=== PATIENT | female | born 1985 | race Caucasian/White ===

== ENCOUNTER → 2021-05-15 | Outpatient (CLI) | payer OTHER ==
[2021-05-15 15:27] LABS: BASO % 0.4 % (0.0-1.0); EOS # 0.1 10^3/uL (0.0-0.5); EOS % 1.4 % (0.0-3.0); HEMATOCRIT 35.3 % (36.0-47.0); HEMOGLOBIN 11.5 g/dl (12.0-15.5); LYMPH # 1.6 10^3/uL (1.5-5.0); LYMPH % 19.5 % (24.0-44.0); MEAN CORPUSCULAR HGB CONC 32.6 g/dl (32.0-36.5); MEAN CORPUSCULAR VOLUME 89.1 fl (80.0-96.0); MONO # 0.8 10^3/uL (0.0-0.8); NEUTROPHILS # 5.8 10^3/uL (1.5-8.5); NEUTROPHILS % 68.2 % (36.0-66.0); PLATELET COUNT, AUTOMATED 235 10^3/uL (150-450); RED BLOOD COUNT 3.96 10^6/uL (4.00-5.40); WHITE BLOOD COUNT 8.4 10^3/uL (4.0-10.0)
[2021-05-15 16:39] LABS: HEPATITIS C VIRUS ABY INDEX < 0.0 INDEX (<0.8); HIV 1&2 SCREEN CENTAUR NEGATIVE (NEGATIVE)
[2021-05-15 16:55] LABS: GC DNA AMPLIFICATION NEGATIVE (NEGATIVE)
== END ==
LOC: M PLALAB 13:43
PROVIDERS: ATTEND Advanced Practice Midwife
DX: Z34.81 Encounter for supervision of other normal pregnancy, first trimester (principal); Z3A.10 10 weeks gestation of pregnancy

== ENCOUNTER → 2021-06-18 | Outpatient (CLI) | payer OTHER | LOC: M PLALAB 10:35 | PROVIDERS: ATTEND Advanced Practice Midwife | DX: Z36.89 Encounter for other specified antenatal screening (principal) ==

== ENCOUNTER → 2021-08-01 | Outpatient (CLI) | payer OTHER ==
--- NOTE | 2021-08-01 14:22 | REP ---
INDICATION: ANATOMY. COMPARISON: None. TECHNIQUE: Real-time sonographic evaluation of the gravid uterus performed. FINDINGS: Estimated gestational age is21 weeks 1 day, EDC 12/11/2021. Today's measurements indicate appropriate growth. Presentation: Variable Placenta anterior, grade 0, without evidence of placenta previa. heart rate is recorded at 144 beats per minute. Amniotic fluid is subjectively normal. Closed cervical length is measured at 4.8 cm. Biometry chart: BPD: 53 mm, 22 weeks 0 days, 72nd percentile. HC: 196 mm, 21 weeks 6 days, 71st percentile AC: 167 mm, 21 weeks 5 days, 63rd percentile Femur length: 35 mm, 21 weeks 0 days, 45th percentile HC to AC ratio: 1.17, normal range 1.05-1.24. Estimated weight: 425g, 62nd percentile. anatomy: Cranium: Grossly normal Lateral Ventricles/Choroid Plexus: Grossly normal Posterior Fossa/Cerebellum: Grossly normal Nose/lips/profile: Grossly normal Four chamber heart: Grossly normal Right ventricular outflow tract: Grossly normal Left ventricular outflow tract: Grossly normal Left-sided stomach: Grossly normal Kidneys: Grossly normal Bladder: Grossly normal Cord Insertion: Grossly normal 3 vessel cord: Grossly normal Spine: Grossly normal IMPRESSION: Viable single intrauterine gestation as above. <Electronically signed by Ben Moseley > 08/01/21 [id number]
== END ==
LOC: M WHC 10:52
PROVIDERS: ATTEND Obstetrics & Gynecology
DX: Z34.02 Encounter for supervision of normal first pregnancy, second trimester (principal); Z36.89 Encounter for other specified antenatal screening; Z3A.21 21 weeks gestation of pregnancy

== ENCOUNTER → 2021-09-09 | Outpatient (CLI) | payer OTHER ==
[2021-09-09 14:42] LABS: HEMOGLOBIN 10.4 g/dl (12.0-15.5); MEAN CORPUSCULAR HEMOGLOBIN 29.9 pg (27.0-33.0); MEAN CORPUSCULAR HGB CONC 31.5 g/dl (32.0-36.5); MEAN CORPUSCULAR VOLUME 94.8 fl (80.0-96.0); PLATELET COUNT, AUTOMATED 236 10^3/uL (150-450); RED BLOOD COUNT 3.48 10^6/uL (4.00-5.40); WHITE BLOOD COUNT 7.8 10^3/uL (4.0-10.0)
[2021-09-09 16:00] LABS: GC DNA AMPLIFICATION NEGATIVE (NEGATIVE)
== END ==
LOC: M PLALAB 10:12
PROVIDERS: ATTEND Obstetrics & Gynecology
DX: Z34.82 Encounter for supervision of other normal pregnancy, second trimester (principal); Z36.89 Encounter for other specified antenatal screening
CPT/HCPCS: 36415; 82950; 85027; 86850; 86900; 86901; 87491; 87591; J2790

== ENCOUNTER → 2021-11-15 | Outpatient (REF) | payer OTHER ==
[~2021-11-15] MED LIST: PRENTAB9 PO
== END ==
LOC: M PLALAB 11:53
PROVIDERS: ATTEND Advanced Practice Midwife
DX: O09.513 Supervision of elderly primigravida, third trimester (principal); Z36.89 Encounter for other specified antenatal screening; Z3A.00 Weeks of gestation of pregnancy not specified
CPT/HCPCS: 59025; 87081; G0463

== ENCOUNTER 2021-11-30 09:22 | Outpatient (CLI) | payer OTHER ==
[~2021-11-30] VITALS: Ht 152.4 cm; Wt 72.7 kg
[2021-11-30 09:44] VITALS: BP 115/68
[2021-11-30] MEDS ORDERED: PRENTAB9 PO (10:07)
[2021-11-30] MEDS ORDERED: HOME MED LIST COMPLETE! XX SCH (10:10)
== END 2021-11-30 10:40 | disposition home or self-care (01) ==
LOC: M LDO 09:22
PROVIDERS: ATTEND Obstetrics & Gynecology
DX: O60.03 Preterm labor without delivery, third trimester (principal); O99.013 Anemia complicating pregnancy, third trimester; Z3A.38 38 weeks gestation of pregnancy
CPT/HCPCS: 59025; 76815; G0378; G0463

== ENCOUNTER 2021-12-03 14:06 | Inpatient (IN) | payer OTHER ==
[2021-12-03] VITALS (27 sets, daily range): BP systolic 98–144; BP diastolic 50–95
[~2021-12-03] VITALS: Ht 152.4 cm; Wt 73.8 kg
[2021-12-03] MEDS ORDERED: TUMS500C PO (15:03)
[2021-12-03] MEDS ORDERED: HOME MED LIST COMPLETE! XX SCH (15:05)
[2021-12-03] MEDS ORDERED: LR 1,000 ML IV SCH (16:40)
[2021-12-03] MEDS ORDERED: LACTATED RINGER'S 1000 ML IV STA (16:40)
[2021-12-03] MEDS ORDERED: TRANEXAMIC ACID INJection 1,000 MG in NS 100 ML IV PRN (16:40)
[2021-12-03] MEDS ORDERED: METHYLERGONOVINE MALEATE 0.2 MG/ML VIAL (J2210) IM PRN (16:40)
[2021-12-03] MEDS ORDERED: OXYTOCIN DRIP 30 UNITS in IV 1 EA IV PRN (16:40)
[2021-12-03] MEDS ORDERED: CARBOPROST TROMETHAMINE 250 MCG/ML AMP IM PRN (16:40)
[2021-12-03] MEDS ORDERED: LIDOCAINE 1% MDV 20ML VIAL INFIL PRN (16:40)
[2021-12-03 17:13] LABS: HEMATOCRIT 37.6 % (36.0-47.0); HEMOGLOBIN 12.6 g/dl (12.0-15.5); MEAN CORPUSCULAR HEMOGLOBIN 30.5 pg (27.0-33.0); MEAN CORPUSCULAR HGB CONC 33.5 g/dl (32.0-36.5); PLATELET COUNT, AUTOMATED 201 10^3/uL (150-450); RED BLOOD COUNT 4.13 10^6/uL (4.00-5.40); WHITE BLOOD COUNT 14.2 10^3/uL (4.0-10.0)
[2021-12-03] MEDS ORDERED: FENTANYL 2MCG/ML ROPIVACAINE 0.2% IN 0.9% NACL 100ML IVBAG As Ordered ONE (18:04)
[2021-12-03] MEDS ORDERED: REFRIGERATOR IV KEYS XX PRN (18:10)
[2021-12-03] MEDS ORDERED: LACTATED RINGER'S 1000 ML IV PRN (18:10)
[2021-12-03] MEDS ORDERED: EPIDURAL/PCA KEYS XX PRN (18:10)
[2021-12-03] MEDS ORDERED: ePHEDrine SULFATE 25 MG/5 ML(5MG/ML) SYRINGE IV PRN (18:10)
[2021-12-03] MEDS ORDERED: ONDANSETRON 4MG/2ML VIAL IV PRN (18:10)
[2021-12-03] MEDS ORDERED: NALOXONE INJ 0.4MG/1ML VIAL (J2310 PER 1MG) IV PRN (18:10)
[2021-12-03] MEDS ORDERED: FENTANYL/ROPIVACAINE/NACL BAG 100 ML EPIDURAL SCH (18:10)
[2021-12-03] MEDS ORDERED: EPIDURAL COMMENT XX SCH (18:10)
[2021-12-03] MEDS ORDERED: diphenhydrAMINE 50MG/ML VIAL (J1200) IV PRN (18:10)
[2021-12-03] MEDS ORDERED: OXYTOCIN DRIP 30 UNITS in IV 1 EA IV SCH (22:50)
[2021-12-04] VITALS (8 sets, daily range): BP systolic 108–166; BP diastolic 54–80
[2021-12-04] MEDS ORDERED: ACETAMINOPHEN TAB 650MG DOSE (2X325MG) PO PRN (00:45)
[2021-12-04] MEDS ORDERED: OXYTOCIN DRIP 30 UNITS in IV 1 EA IV SCH (00:45)
[2021-12-04] MEDS ORDERED: ONDANSETRON 4MG/2ML VIAL IV PRN (00:45)
[2021-12-04] MEDS ORDERED: IBUPROFEN 600MG TAB PO PRN (00:45)
[2021-12-04] MEDS ORDERED: METHYLERGONOVINE MALEATE 0.2 MG TAB PO PRN (00:45)
[2021-12-04] MEDS ORDERED: DIBUCAINE 1% OINTMENT 30GM TOP PRN (00:45)
[2021-12-04] MEDS ORDERED: ACETAMINOPHEN 500 MG TAB PO PRN (00:45)
[2021-12-04] MEDS ORDERED: MEASLES,MUMPS,RUBELLA VACCINE INJ (MMR-II) (90707) SC SCH (00:45)
[2021-12-04] MEDS ORDERED: RHOGAM 300 MCG (1500 IU) INJ (J2790) IM SCH (00:45)
[2021-12-04] MEDS ORDERED: LR 1,000 ML IV SCH (00:45)
[2021-12-04] MEDS: PRENATAL VITAMINS CHEWABLE TABLET PO SCH (08:47)
[2021-12-04] MEDS: IBUPROFEN 800 MG TAB PO PRN (13:44)
[2021-12-04] MEDS: DOCUSATE SODIUM 100MG CAPSULE PO PRN (18:04)
[2021-12-05 05:49] VITALS: BP 125/68
[2021-12-05] MEDS: PRENATAL VITAMINS CHEWABLE TABLET PO SCH (07:40)
[2021-12-05] MEDS: IBUPROFEN 800 MG TAB PO PRN (07:54)
[2021-12-05] MEDS ORDERED: IBUP80TA PO (11:32)
[2021-12-05] MEDS ORDERED: ACET-683 PO (11:32)
[2021-12-05] MEDS: DOCUSATE SODIUM 100MG CAPSULE PO PRN (14:10)
== END 2021-12-05 15:33 | disposition home or self-care (01) | DRG 807 ==
LOC: M LDO 14:06 → M LDI 16:42 → M OBS 12-04 02:27
PROVIDERS: ADMIT Obstetrics & Gynecology; ATTEND Obstetrics & Gynecology
PROC: 10E0XZZ Delivery of Products of Conception, External Approach (ICD-10-PCS; principal; 2021-12-04)
PROC: 0KQM0ZZ Repair Perineum Muscle, Open Approach (ICD-10-PCS; 2021-12-04)
DX: O70.1 Second degree perineal laceration during delivery (principal); Z37.0 Single live birth; Z3A.38 38 weeks gestation of pregnancy

== ENCOUNTER → 2024-04-13 | Outpatient (CLI) | payer OTHER ==
[~2024-04-13] MED LIST changes: +ACET-683 PO; +IBUP80TA PO; +TUMS500C PO
== END ==
LOC: M WHC 09:46
PROVIDERS: ATTEND Obstetrics & Gynecology
DX: O41.8X20 Other specified disorders of amniotic fluid and membranes, second trimester, not applicable or unspecified (principal); O32.1XX0 Maternal care for breech presentation, not applicable or unspecified; Z3A.19 19 weeks gestation of pregnancy

== ENCOUNTER → 2024-06-15 | Outpatient (CLI) | payer OTHER ==
[2024-06-15 12:53] LABS: GLUCOSE CHALLENGE TEST 1 HOUR 145 MG/DL (LESS THAN 140); HEMATOCRIT 32.2 % (36.0-47.0); HEMOGLOBIN 10.2 g/dl (12.0-15.5); MEAN CORPUSCULAR HEMOGLOBIN 29.1 pg (27.0-33.0); MEAN CORPUSCULAR HGB CONC 31.7 g/dl (32.0-36.5); MEAN CORPUSCULAR VOLUME 91.7 fl (80.0-96.0); PLATELET COUNT, AUTOMATED 231 10^3/uL (150-450); RED BLOOD COUNT 3.51 10^6/uL (4.00-5.40); WHITE BLOOD COUNT 6.5 10^3/uL (4.0-10.0)
[2024-06-15 13:28] LABS: HIV 1&2 SCREEN NEGATIVE (NEGATIVE)
[2024-06-15 13:36] LABS: HEPATITIS C VIRUS ABY INDEX < 0.02 INDEX (<0.8)
[2024-06-15 14:49] LABS: GC DNA AMPLIFICATION NEGATIVE (NEGATIVE)
== END ==
LOC: M PLALAB 08:45
PROVIDERS: ATTEND Obstetrics & Gynecology
DX: Z34.82 Encounter for supervision of other normal pregnancy, second trimester (principal)

== ENCOUNTER → 2024-06-30 | Outpatient (CLI) | payer OTHER | LOC: M LAB 07:36 | PROVIDERS: ATTEND Obstetrics & Gynecology | DX: O99.810 Abnormal glucose complicating pregnancy (principal); Z3A.00 Weeks of gestation of pregnancy not specified ==

== ENCOUNTER 2024-08-10 05:39 | Inpatient (IN) | payer OTHER ==
[2024-08-10] VITALS (23 sets, daily range): BP systolic 96–144; BP diastolic 49–89
[~2024-08-10] VITALS: Ht 149.9 cm; Wt 74.3 kg
[2024-08-10] MEDS ORDERED: HOME MED LIST COMPLETE! XX SCH (06:00)
[2024-08-10] MEDS ORDERED: TRANEXAMIC ACID INJection 1,000 MG in NS 100 ML IV PRN (07:00)
[2024-08-10] MEDS ORDERED: METHYLERGONOVINE MALEATE 0.2MG/ML 1ML VIAL IM PRN (07:00)
[2024-08-10] MEDS ORDERED: CARBOPROST TROMETHAMINE 250 MCG/ML AMP IM PRN (07:00)
[2024-08-10] MEDS ORDERED: LACTATED RINGER'S 1000 ML IV PRN (07:00)
[2024-08-10] MEDS ORDERED: OXYTOCIN DRIP 30 UNITS in IV 1 EA IV PRN (07:00)
[2024-08-10] MEDS: BETAMETHASONE SOLUSPAN 6MG/ML 5ML VIAL IM SCH (07:46)
[2024-08-10 08:30] LABS: HEPATITIS C VIRUS ABY INDEX < 0.02 INDEX (<0.8)
[2024-08-10] MEDS: PENICILLIN G POTASSIUM 5 MU IV 5 MU in DEXTROSE 5% (D5W) MINI-BAG PLU 100 ML IV STA (08:32)
[2024-08-10 09:42] LABS: HEMOGLOBIN 9.6 g/dl (12.0-15.5); MEAN CORPUSCULAR HEMOGLOBIN 26.6 pg (27.0-33.0); MEAN CORPUSCULAR VOLUME 85.9 fl (80.0-96.0); PLATELET COUNT, AUTOMATED 216 10^3/uL (150-450); RED BLOOD COUNT 3.61 10^6/uL (4.00-5.40); WHITE BLOOD COUNT 7.7 10^3/uL (4.0-10.0)
[2024-08-10] MEDS: PEN G POT 3,000,000 UNIT/50 ML 3,000,000 UNIT in IV 1 EA IV SCH (12:23)
[2024-08-10] MEDS: miSOPROStol 50MCG 1/2 TABLET PO ONE (14:55)
[2024-08-10] MEDS ORDERED: LR 1,000 ML IV SCH (19:15)
[2024-08-10] MEDS: ACETAMINOPHEN 500 MG TAB PO PRN (19:23)
[2024-08-10] MEDS: OXYTOCIN DRIP 30 UNITS in IV 1 EA IV SCH (19:24)
[2024-08-10] MEDS ORDERED: ONDANSETRON 4MG 2ML VIAL IV PRN (23:00)
[2024-08-10] MEDS ORDERED: ePHEDrine SULFATE 25 MG/5 ML(5MG/ML) SYRINGE IVP PRN (23:00)
[2024-08-10] MEDS ORDERED: diphenhydrAMINE 50MG/ML VIAL IV PRN (23:00)
[2024-08-10] MEDS ORDERED: NALOXONE INJ 0.4MG/1ML VIAL IV PRN (23:00)
[2024-08-10] MEDS ORDERED: EPIDURAL/PCA KEYS XX PRN (23:00)
[2024-08-10] MEDS: FENTANYL/ROPIVACAINE/NACL BAG 100 ML EPIDURAL SCH (23:16)
[2024-08-11] VITALS (7 sets, daily range): BP systolic 100–134; BP diastolic 54–74; O2SAT 96–97
[2024-08-11] MEDS ORDERED: IBUPROFEN 600MG TAB PO PRN (01:05)
[2024-08-11] MEDS ORDERED: METHYLERGONOVINE MALEATE 0.2 MG TAB PO PRN (01:05)
[2024-08-11] MEDS ORDERED: RHOGAM 300MCG (1500IU) INJ IM SCH (01:05)
[2024-08-11] MEDS: DOCUSATE SODIUM 100MG CAPSULE PO PRN (04:03)
[2024-08-11] MEDS: PRENATAL VITAMINS CHEWABLE TABLET PO SCH (07:40)
[2024-08-11] MEDS: DIBUCAINE 1% OINTMENT 30GM TOP PRN (07:41)
[2024-08-11] MEDS: IBUPROFEN 800 MG TAB PO PRN (12:41)
[2024-08-12 06:00] VITALS: BP 121/69; O2SAT 98
[2024-08-12 18:00] VITALS: BP 123/59; O2SAT 97
[2024-08-13 06:06] VITALS: BP 113/60; O2SAT 98
[2024-08-13] MEDS ORDERED: MEASLES,MUMPS,RUBELLA VACCINE INJ (MMR-II) SC.IMMUN ONE (09:00)
== END 2024-08-13 14:10 | disposition home or self-care (01) | DRG 807 ==
LOC: M LDO 05:39 → M LDI 06:48 → M OBS 08-11 03:47
PROVIDERS: ADMIT Obstetrics & Gynecology; ATTEND Advanced Practice Midwife
PROC: 3E033VJ Introduction of Other Hormone into Peripheral Vein, Percutaneous Approach (ICD-10-PCS; 2024-08-10)
PROC: 10E0XZZ Delivery of Products of Conception, External Approach (ICD-10-PCS; principal; 2024-08-11)
PROC: 0HQ9XZZ Repair Perineum Skin, External Approach (ICD-10-PCS; 2024-08-11)
DX: O42.013 Preterm premature rupture of membranes, onset of labor within 24 hours of rupture, third trimester (principal); Z37.0 Single live birth; Z3A.35 35 weeks gestation of pregnancy; O69.1XX0 Labor and delivery complicated by cord around neck, with compression, not applicable or unspecified; O70.0 First degree perineal laceration during delivery

== ENCOUNTER → 2024-11-16 | Outpatient (REF) | payer OTHER | LOC: M LAB REF 16:46 | PROVIDERS: ATTEND Nurse Practitioner Adult Health | DX: J02.9 Acute pharyngitis, unspecified (principal) ==